=== PATIENT | female | born 1975 | race Caucasian/White ===

== ENCOUNTER → 2016-05-08 | Outpatient (CLI) | payer BC ==
[~2016-05-08] MED LIST: DOCO1CAP10 PO; FOLIC ACID PO; METH0.2T39 PO; MTR600X PO; OXYC-57 PO; PRENTAB26 PO; RANI150T3 PO
[2016-05-08 14:49] LABS: BASO % 0.1 %; BASO ABS # 0.01 K/uL (0-0.2); COMPLETE YES; EOS % 1.7 %; HEMATOCRIT 39.3 % (37-47); IG% 0.1 %; LYMPH % 17.4 %; LYMPH ABS # 1.67 K/uL (1.2-3.4); MEAN CELL VOLUME 89.1 fL (80-100); MEAN CORPUSCULAR HEMOGLOBIN 31.7 pg (25-34); MEAN CORPUSCULAR HGB CONC 35.6 g/dl (32-36); MEAN PLATELET VOLUME 11.4 fL (7.4-10.4); MONO % 7.6 %; NEUT % 73.1 %; PLATELET COUNT 220 K/uL (130-400); RED BLOOD COUNT 4.41 M/uL (4.2-5.4); WHITE BLOOD COUNT 9.58 K/uL (4.8-10.8)
[2016-05-08 15:32] LABS: URINE APPEARANCE CLEAR (CLEAR); URINE BILIRUBIN NEG (NEG); URINE COLOR YELLOW; URINE NITRITE NEG (NEG); URINE PH 5.5 (4.5-7.5); URINE SPECIFIC GRAVITY 1.005 (1.000-1.030); UROBILINOGEN NEG (NEG)
[2016-05-08 15:34] LABS: MANUAL MICROSCOPIC REQUIRED? NO; REVIEW REQ? NO
[2016-05-12 03:07] LABS: CHLAMYDIA TRACH RNA*** NOT DETECTED (NOT DETECTED); GC (NEIS GONORRHOEAE)RNA** NOT DETECTED (NOT DETECTED)
== END | disposition home or self-care (01) ==
LOC: C.LAB1850 12:33
PROVIDERS: ATTEND Obstetrics & Gynecology
DX: O09.811 Supervision of pregnancy resulting from assisted reproductive technology, first trimester (principal)

== ENCOUNTER → 2016-06-06 | Outpatient (CLI) | payer BC ==
[2016-06-06 12:35] LABS: GTGD 50 Grams
[2016-06-07 15:19] LABS: AFP CONCENTRATION 39.7 NG/ML; AFP MULTIPLE OF MEDIAN 1.15; AFPTS INSULIN DEP DIABETIC? NO; AFPTS MATERNAL WT 137 LBS; ALPHA-FETOPROTEIN RACE CAUCASIAN=W; HISTORY OF NTD NO; REPEAT SAMPLE? NO
== END | disposition home or self-care (01) ==
LOC: C.LAB1850 09:23
PROVIDERS: ATTEND Obstetrics & Gynecology
DX: O09.812 Supervision of pregnancy resulting from assisted reproductive technology, second trimester (principal)

== ENCOUNTER → 2016-08-28 | Outpatient (CLI) | payer BC ==
[2016-08-28 16:35] LABS: URINE APPEARANCE CLEAR (CLEAR); URINE BILIRUBIN NEG (NEG); URINE COLOR YELLOW; URINE NITRITE NEG (NEG); URINE PH 6.5 (4.5-7.5); URINE SPECIFIC GRAVITY 1.008 (1.000-1.030); UROBILINOGEN NEG (NEG)
[2016-08-28 16:46] LABS: MANUAL MICROSCOPIC REQUIRED? NO; REVIEW REQ? NO
== END | disposition home or self-care (01) ==
LOC: C.LABSPEC 15:30
PROVIDERS: ATTEND Obstetrics & Gynecology
DX: O09.513 Supervision of elderly primigravida, third trimester (principal)

== ENCOUNTER → 2016-08-29 | Outpatient (CLI) | payer BC ==
[2016-08-29 09:37] LABS: HEMATOCRIT 38.2 % (37-47)
[2016-08-29 10:29] LABS: GTGD 50 Grams
== END | disposition home or self-care (01) ==
LOC: C.LAB1850 07:28
PROVIDERS: ATTEND Obstetrics & Gynecology
DX: O09.513 Supervision of elderly primigravida, third trimester (principal); Z3A.00 Weeks of gestation of pregnancy not specified

== ENCOUNTER → 2016-10-29 | Outpatient (CLI) | payer BC | END | disposition home or self-care (01) | LOC: C.LABSPEC 12:25 | PROVIDERS: ATTEND Obstetrics & Gynecology | DX: O09.513 Supervision of elderly primigravida, third trimester (principal); Z3A.00 Weeks of gestation of pregnancy not specified ==

== ENCOUNTER 2016-11-21 00:11 | Inpatient (IN) | payer BC ==
[~2016-11-21] VITALS: Ht 172.7 cm; Wt 74.1 kg
[~2016-11-21 00:11] MED LIST changes: -OXYC-57 PO; -RANI150T3 PO
[2016-11-28] MEDS ORDERED: LACTATED RINGER'S 1000ML 1,000 ML IV PRN (07:51)
[2016-11-28] MEDS ORDERED: LACTATED RINGER'S 1000ML 500 ML IV PRN (08:17)
[2016-11-28 08:29] VITALS: Ht 172.7 cm; Wt 74.1 kg
[2016-11-28] MEDS ORDERED: OXYTOCIN 30 UNITS/500ML NSS IV PRN (08:30)
[2016-11-28 08:33] LABS: HEMATOCRIT 39.7 % (37-47); MEAN CELL VOLUME 90.2 fL (80-100); MEAN CORPUSCULAR HEMOGLOBIN 31.8 pg (25-34); MEAN CORPUSCULAR HGB CONC 35.3 g/dl (32-36); MEAN PLATELET VOLUME 12.1 fL (7.4-10.4); PLATELET COUNT 183 K/uL (130-400); WHITE BLOOD COUNT 13.65 K/uL (4.8-10.8)
[2016-11-28] MEDS: LACTATED RINGER'S 1000ML 1,000 ML IV SCH ×2 (08:48→16:50)
[2016-11-28] MEDS ORDERED: RANI150T3 PO (09:51)
--- NOTE | 2016-11-28 14:48 | Medical Student: [facility] ---
Med Student History & Physical Date of Service Nov 28, 2016. Chief Complaint Induction History of Present Illness Source: patient Pt is a 41 yo F with LAURA of 11/21/2016 by 1st trimester US at 41 weeks GA who presents for induction of labor. course has been followed by [facility]. Pt reports having regular contractions every 2 minutes and good movement. There was no loss of fluid/SROM when pt arrived at hospital. Pt denies bleeding. Pt plans to receive epidural for pain control. Blood type O positive, rubella immune, GBS negative, HBV negative, VDRL/RPR nonreactive, C/G negative, 1 hr glucose 102 CBC (11/28/2016 0805) Hgb 14.0 Hct 39.7 OB History Spontaneous (08/23/2014 and 02/10/14) Blighted ovum (11/12/2013) Hx of infertility [facility]IST History Menarche at age 12 had colposcopy in 2003 Past Medical History varicella, fractured clavicle Past Surgical History D&E in 2014 for missed Tonsillectomy and adenoidectomy wisdom teeth Family History colon cancer (father) breast cancer (mother) osteoarthritis (mother) osteoporosis (mother) hypertension (mother, father) hypercholesterolemia (mother, father) spina bifida (brother) coronary artery disease (maternal grandmother) stroke (maternal grandmother) diabetes mellitus (paternal grandmother) Social History Smoking Status: Never Smoker Alcohol Use: none Drug Use: none Marital Status: Occupational Status: employed Allergies Coded Allergies: No Known Allergies (Unverified , 09/10/14) Home Medications Docosahexaenoic Acid (Dha), 1 CAP PO DAILY Multivit/Min/Iron/Fol Ac/Pren ( Vitamin), 1 TAB PO DAILY Ranitidine Hcl (Zantac), 1 TAB PO BID [Folic Acid], 1 MG PO QID Review of Systems Constitutional: No fever, No chills Eyes: No worsening of vision Respiratory: No cough, No shortness of breath Cardiovascular: No chest pain, No edema Abdomen: No pain, No nausea, No vomiting Genitourinary - Female: No dysuria Physical Exam Vital Signs: Temp: 36.7 c , BP 130/84 , HR 82 , RR 20 General Appearance: WD/WN, no apparent distress Respiratory/Chest: chest non-tender, lungs clear, normal breath sounds Cardiovascular: regular rate, rhythm, no edema Abdomen / GI: non tender, soft Extremities: normal inspection, no calf tenderness, no pedal edema Skin: normal color, warm/dry Monitoring External Monitor: Baseline HR 130, moderate variability, accels present, no decels, category 1 Tocodynamometer: ctx every 2 minutes Laboratory Results 11/28/16 08:05 Test 11/28/16 08:05 Red Blood Count 4.40 M/uL (4.2-5.4) Mean Corpuscular Volume 90.2 fL (80-100) Mean Corpuscular Hemoglobin 31.8 pg (25-34) Mean Corpuscular Hemoglobin Concent 35.3 g/dl (32-36) RDW Standard Deviation 45.2 fL (36.4-46.3) RDW Coefficient of Variation 13.7 % (11.5-14.5) Mean Platelet Volume 12.1 fL (7.4-10.4) Assessment and Plan pt is a 41 yo F at 41 weeks GA who presents for induction of labor. tracing category 1. - admit to L&D - monitor mother and fetus with toco and EFM - AROM and pitocin for induction of labor - Epidural for pain control - Expect
[2016-11-28] MEDS ORDERED: LACTATED RINGER'S 1000ML 1,000 ML IV SCH (23:26)
[2016-11-28] MEDS ORDERED: CITRIC ACID/SODIUM CITRATE 15 ML UDC PO SCH (23:45)
[2016-11-29] VITALS (22 sets, daily range): BP systolic 95–125; BP diastolic 60–82; PULSE 73–112; TEMP 36.5–37.2; O2SAT 98–100
[2016-11-29] MEDS ORDERED: CEFAZOLIN IV 2,000 MG in DEXTROSE 5% 50ML 50 ML IV SCH ×2
[2016-11-29] MEDS ORDERED: FENTANYL CITRATE INJ 50 MCG/1 ML 2 ML VIAL ONE (01:09)
[2016-11-29] MEDS ORDERED: MoRPHine SULFATE PF 1 MG/ML 10 ML AMP/VIAL ONE (01:10)
[2016-11-29] MEDS ORDERED: OXYTOCIN INJ 10 UNITS/ML VIAL ONE ×2 (01:10→02:12)
[2016-11-29] MEDS ORDERED: PHENYLEPHRINE HCL INJ 10 MG/ML VIAL ONE (01:10)
[2016-11-29] MEDS ORDERED: ONDANSETRON INJ 2 MG/ML 2 ML VIAL ONE (01:53)
[2016-11-29] MEDS ORDERED: SODIUM CHLORIDE 0.9% 1000ML 1,000 ML IV PRN (02:20)
[2016-11-29] MEDS ORDERED: NALOXONE HCL INJ 1 MG in SODIUM CHLORIDE 0.9% 1000ML 1,000 ML IV PRN (02:20)
[2016-11-29] MEDS ORDERED: NALOXONE HCL INJ 0.08 MG in SYRINGE 1.8 ML IV PRN (02:20)
[2016-11-29] MEDS ORDERED: LACTATED RINGER'S 1000ML 500 ML IV PRN (02:20)
[2016-11-29] MEDS ORDERED: NO NARCOTICS OR SEDATIVES SCH (02:30)
[2016-11-29] MEDS ORDERED: LANOLIN OINT EXT PRN ×2 (02:30)
[2016-11-29] MEDS ORDERED: EpHEDrine SULFATE INJ 50 MG/ML AMP IV PRN (02:30)
[2016-11-29] MEDS ORDERED: NALOXONE HCL 0.4 MG/1 ML VIAL/CARP IV PRN (02:30)
[2016-11-29] MEDS ORDERED: HYDROCORTISONE ACETATE 25 MG SUPP PR PRN (02:30)
[2016-11-29] MEDS ORDERED: MEPERIDINE HCL 25 MG/ML CARP IV PRN (02:30)
[2016-11-29] MEDS ORDERED: BENZOCAINE 20% AER SPR 82.5 GM CAN EXT PRN (02:30)
[2016-11-29] MEDS ORDERED: DiphenhydrAMINE HCL 50 MG/ML VIAL IV PRN ×2 (02:30→19:30)
[2016-11-29] MEDS ORDERED: NALBUPHINE HCL INJ 10 MG/ML AMP IV PRN (02:30)
[2016-11-29] MEDS ORDERED: MoRPHine SULFATE PF 1 MG/ML 10 ML AMP/VIAL EPI PRN (02:30)
[2016-11-29] MEDS ORDERED: SUPERCREAM 0.870 % 15GM JAR EXT PRN (02:30)
[2016-11-29] MEDS ORDERED: MoRPHine SULFATE 2 MG/ML CARP IV PRN (02:30)
[2016-11-29] MEDS ORDERED: ONDANSETRON INJ 2 MG/ML 2 ML VIAL IV PRN ×2 (02:30→19:30)
[2016-11-29] MEDS ORDERED: DIPHTHERIA/TETANUS/PERTUSSIS 0.5 ML SYR/VIAL IM. ONE (02:30)
--- NOTE | 2016-11-29 02:31 | [facility] Post Operative Brief Note ---
Immediate Operative Summary Operative Date Nov 29, 2016. Pre-Operative Diagnosis 1. Post term 2. Failed induction Post-Operative Diagnosis Same Procedure(s) Performed Primary lower uterine transverse caesarean section Delivery of live male child at [address] Hardy Baster Hand Surgeon(s) Tanika Cloud, HENRIQUE Estimated Blood Loss 800cc Findings viable male infant, 8/9 weight 8lbs 7 ozs, Art/venous cord gasses pending , cord blood donation kit collected, normal appearing tubes and ovaries bilaterally Fluids (cc crystalloids) 1600 Specimens Placenta-hold Cord blood Cord blood gases Cord blood for public donation Drains Suarez to gravity Anesthesia Spinal Complication(s) None Disposition L&D
--- NOTE | 2016-11-29 02:53 | Anesthesiology Progress Note ---
Anesthesia Post Op Note Date & Time Nov 29, 2016 at 02:53 Notes Mental Status: alert / awake / arousable, participated in evaluation Pt Amnestic to Procedure: Yes Nausea / Vomiting: adequately controlled Pain: adequately controlled Airway Patency, RR, SpO2: stable & adequate BP & HR: stable & adequate Hydration State: stable & adequate Neuraxial Anesthesia: was administered, sensory block is resolving Anesthetic Complications: no major complications apparent
[2016-11-29] MEDS: OXYTOCIN INJ 20 UNITS in LACTATED RINGER'S 1000ML 1,000 ML IV SCH ×3 (03:22→18:46)
--- NOTE | 2016-11-29 05:08 | OPERATIVE REPORT ---
DATE OF OPERATION: 11/29/2016 PREOPERATIVE DIAGNOSES: 1. Postdates . 2. Failed induction. POSTOPERATIVE DIAGNOSES: Same. PROCEDURE PERFORMED: Primary low cervical transverse section. SURGEON: Dr. Hardy. ANESTHESIA: Spinal. FINDINGS: Viable male with Apgars of 8 and 9 and weight of 8 pounds 7 ounces. Arterial and venous cord gases are pending. Cord blood donation kit collected. Normal appearing tubes and ovaries bilaterally. PROCEDURE IN DETAIL: The patient was taken to the operating room, and after spinal anesthesia, was placed in supine position and draped and prepped in the usual fashion. Pfannenstiel type incision was made. Underlying subcutaneous tissue was dissected down to the ventral abdominal fascia which was nicked and opened in a horizontal manner. Preperitoneal fascia was dissected away until the peritoneal cavity was entered and opened in a vertical manner. Bladder blade was placed. Uterus was entered sharply and extended in a semi-lunar fashion manually. Viable male infant with description as above was delivered. Cord was clamped and cut and the baby was passed off to pediatrics who was in attendance for the delivery. Cord gases, cord blood samples obtained. Cord blood donation kit was collected. The placenta was then delivered manually and the uterus was exteriorized. Uterine cavity was wiped clean of any residual blood tissue and/or clot. Uterine atony addressed with myometrial injection of Hemabate 250 mcg directly into the myometrium. The uterine incision was closed with 2 layers of 4-0 Vicryl, the first a running locking stitch, the second an imbricating stitch. Hemostasis achieved and the uterus returned to the pelvic cavity. Pericolic gutters were cleared bilaterally of any blood tissue and/or clot. Sponge and needle count was correct. Inspection of the uterine incision was again showing hemostasis. The rectus muscle was then plicated in the midline with a running 2-0 Vicryl stitch. The fascia was closed laterally with a running 0 Vicryl suture. Subcutaneous tissue was irrigated with saline. Skin incision was closed with a 4-0 Monocryl subcuticular suture. Sterile dressing applied and the patient taken to the recovery room in satisfactory condition. I attest to the content of the Intraoperative Record and any orders documented therein. Any exception s are noted below.
[2016-11-29] MEDS: KETOROLAC TROMETHAMINE 30 MG/ML VIAL IV. PRN ×2 (05:49→18:46)
[2016-11-29] MEDS: FERROUS SULFATE 325 MG TAB PO SCH (08:27)
[2016-11-29] MEDS: PRENATAL VITAMIN TAB PO SCH (08:27)
[2016-11-29] MEDS ORDERED: MISOPROSTOL 200 MCG TAB ONE (08:52)
[2016-11-29] MEDS ORDERED: MISOPROSTOL 200 MCG TAB PO STA (08:57)
[2016-11-29] MEDS ORDERED: CALCIUM CARBONATE 500 MG CHEWABLE ONE (10:15)
[2016-11-29] MEDS ORDERED: CALCIUM CARBONATE 500 MG CHEWABLE PO PRN (10:15)
[2016-11-29] MEDS ORDERED: DC INTRASPINAL MORPHINE SCH (19:30)
[2016-11-29] MEDS ORDERED: OXYCODONE/ACETAMINOPHEN 5-325 TAB PO PRN (19:30)
[2016-11-29] MEDS ORDERED: KETOROLAC TROMETHAMINE 30 MG/ML VIAL IV. PRN (19:30)
[2016-11-30] VITALS (17 sets, daily range): BP systolic 96–145; BP diastolic 58–93; PULSE 76–102; TEMP 36.5–37.3; O2SAT 96–98
[2016-11-30] MEDS: IBUPROFEN 600 MG TAB PO PRN ×4 (03:04→17:39)
[2016-11-30] MEDS: OXYCODONE/ACETAMINOPHEN 5-325 TAB PO PRN ×4 (03:04→17:39)
--- NOTE | 2016-11-30 07:58 | Progress Note ---
Subjective Nov 30, 2016. Subjective conversation w/ patient, physical exam Ambulation: ambulating normally Voiding: no voiding problems Passing Gas: Yes Diet Tolerance: Regular Diet Lochia: Moderate (decreased greatly from yesterday) Feeding Type: Breast Feeding Review of Systems Constitutional: No fever, No chills Cardiac: No chest pain Abdomen: No nausea, No vomiting Objective Vital Signs Date Time Temp Pulse Resp B/P (MAP) Pulse Ox O2 Delivery O2 Flow Rate FiO2 11/30/16 07:30 36.5 96 16 145/93 (110) 98 Room Air 11/30/16 03:35 37.3 96 16 101/66 (78) Room Air 11/29/16 23:40 Room Air 11/29/16 23:40 36.9 84 18 95/60 (72) Room Air 11/29/16 20:00 18 99 11/29/16 19:30 18 100 11/29/16 19:05 36.8 102 18 105/70 (82) 99 Room Air 11/29/16 19:00 18 100 11/29/16 18:00 18 100 11/29/16 17:00 18 99 11/29/16 16:25 37.1 112 18 101/70 (80) 100 Room Air 11/29/16 16:25 100 Room Air 11/29/16 16:00 20 100 11/29/16 15:00 18 99 11/29/16 13:00 18 100 11/29/16 12:05 18 100 11/29/16 11:07 37.2 100 20 120/82 (95) 99 Room Air 11/29/16 11:05 20 99 11/29/16 10:30 18 100 11/29/16 09:30 16 100 11/29/16 08:30 17 100 11/29/16 08:30 Room Air 11/29/16 08:30 17 100 Physical Exam General Appearance: WELL-APPEARING, NO APPARENT DISTRESS Respiratory/Chest: no respiratory distress, no accessory muscle use Cardiovascular: no edema Abdomen: non tender, soft Fundus: Firm Extremities: no pedal edema, no calf tenderness Laboratory Results Last 24 Hours Test 11/29/16 10:36 11/30/16 06:49 Hemoglobin 10.7 g/dL Hematocrit 31.0 % Assessment and Plan Post-Op Day#: 1 Continue Routine Care: POD1 for failed IOL, with PPH treated by cytotec yesterday. Improved greatly in terms of VB today. Labs pending.
[2016-11-30 08:11] LABS: HEMATOCRIT 18.2 % (37-47); MEAN CELL VOLUME 91.9 fL (80-100); MEAN CORPUSCULAR HEMOGLOBIN 31.3 pg (25-34); MEAN CORPUSCULAR HGB CONC 34.1 g/dl (32-36); MEAN PLATELET VOLUME 11.1 fL (7.4-10.4); PLATELET COUNT 141 K/uL (130-400); RED BLOOD COUNT 1.98 M/uL (4.2-5.4); WHITE BLOOD COUNT 14.06 K/uL (4.8-10.8)
[2016-11-30 08:14] LABS: BASO % 0.1 %; BASO ABS # 0.02 K/uL (0-0.2); COMPLETE YES; ECHINOCYTES 1+; EOS % 0.6 %; IG% 0.2 %; LYMPH % 12.8 %; MONO % 8.6 %; NEUT % 77.7 %
[2016-11-30] MEDS: FERROUS SULFATE 325 MG TAB PO SCH (08:20)
[2016-11-30] MEDS: PRENATAL VITAMIN TAB PO SCH (08:20)
--- NOTE | 2016-11-30 08:56 | Progress Note ---
Progress Note Date of Service Nov 30, 2016. Progress Note Patient's hemoglobin is 6.2, down from 10.7 yesterday. She is feeling some ringing in her ears when ambulating. Vaginal bleeding has slowed at this point, a scant amount in the pad at this time, and patient passed a small clot the last time she got up to go to the bathroom. We discussed her symptomatic anemia, patient is agreeable to blood transfusion. Will order 2u PRBC. Discussed risks/benefits/alternatives, patient would like to proceed.
[2016-11-30 18:28] LABS: HEMATOCRIT 25.1 % (37-47)
[2016-11-30] MEDS: SENNA 8.6 MG TAB PO SCH (21:30)
[2016-11-30] MEDS: MAGNESIUM HYDROXIDE SUSP 30 ML UDC PO SCH (21:30)
[2016-12-01] MEDS: IBUPROFEN 600 MG TAB PO PRN ×3 (02:01→15:56)
[2016-12-01] MEDS: OXYCODONE/ACETAMINOPHEN 5-325 TAB PO PRN ×2 (02:01→18:06)
--- NOTE | 2016-12-01 05:49 | OB/GYN Progress Note ---
[employer] Progress Note Date of Service Dec 01, 2016. Subjective conversation w/ patient, physical exam, chart review, lab review Ambulation: ambulating normally Voiding: no voiding problems Passing Gas: Yes Diet Tolerance: Regular Diet Lochia: Small Feeding Type: Breast Feeding Pain: 1/10 at worst 6/10 with movement controlled with pain medications Review of Systems Constitutional: No fever Respiratory: No shortness of breath Cardiac: No chest pain Breast: No problem reported Abdomen: No nausea, No vomiting Female : No dysuria Objective Vital Signs Date Time Temp Pulse Resp B/P (MAP) Pulse Ox O2 Delivery O2 Flow Rate FiO2 11/30/16 23:30 Room Air 11/30/16 23:30 36.8 76 18 110/67 (81) Room Air 11/30/16 19:15 36.9 98 20 111/71 (84) 96 Room Air 11/30/16 18:15 36.6 82 20 110/71 (84) Room Air 11/30/16 17:15 36.8 79 20 122/76 (91) Room Air 11/30/16 16:15 36.6 88 20 104/65 (78) Room Air 11/30/16 15:30 Room Air 11/30/16 15:15 36.6 97 20 118/71 11/30/16 14:45 36.9 94 20 98/61 98 11/30/16 14:15 36.9 98 20 96/58 98 11/30/16 14:00 36.9 92 20 98/65 98 11/30/16 13:48 36.9 92 20 113/71 11/30/16 13:25 37.3 96 18 104/64 11/30/16 12:55 36.8 102 18 118/73 11/30/16 12:25 37.0 102 18 127/79 11/30/16 12:05 37.0 88 20 120/76 98 11/30/16 11:45 36.8 98 16 129/64 11/30/16 08:35 Room Air 11/30/16 07:30 36.5 96 16 145/93 (110) 98 Room Air Physical Exam General Appearance: WELL-APPEARING Respiratory/Chest: lungs clear, normal breath sounds, no respiratory distress Cardiovascular: regular rate, rhythm Abdomen: normal bowel sounds, non tender, soft Fundus: Firm, Relation to Umbilicus (2 finger breaths below) Incision Description: Clean, Dry & Intact Extremities: non-tender, + pedal edema (mild ) Laboratory Results Last 24 Hours Test 11/30/16 06:49 11/30/16 18:02 White Blood Count 14.06 K/uL Red Blood Count 1.98 M/uL Hemoglobin 6.2 g/dL 8.6 g/dL Hematocrit 18.2 % 25.1 % Mean Corpuscular Volume 91.9 fL Mean Corpuscular Hemoglobin 31.3 pg Mean Corpuscular Hemoglobin Concent 34.1 g/dl Platelet Count 141 K/uL Mean Platelet Volume 11.1 fL Neutrophils (%) (Auto) 77.7 % Lymphocytes (%) (Auto) 12.8 % Monocytes (%) (Auto) 8.6 % Eosinophils (%) (Auto) 0.6 % Basophils (%) (Auto) 0.1 % Neutrophils # (Auto) 10.92 K/uL Lymphocytes # (Auto) 1.80 K/uL Monocytes # (Auto) 1.21 K/uL Eosinophils # (Auto) 0.08 K/uL Basophils # (Auto) 0.02 K/uL RDW Standard Deviation 47.4 fL RDW Coefficient of Variation 14.3 % Immature Granulocyte % (Auto) 0.2 % Immature Granulocyte # (Auto) 0.03 K/uL Echinocytes 1+ Medications Current Inpatient Medications Medications (Trade) Dose Ordered Sig/Gabe Route Start Time Stop Time Status Last Admin Dose Admin Lactated Ringer's 1,000 ml @ 1,000 mls/hr Q1H IV 11/28/16 23:26 12/28/16 23:25 Morphine Sulfate (Duramorph Pf Inj) TODAY PRN EPI 11/29/16 02:30 Ketorolac Tromethamine (Toradol Inj) 30 mg Q6H PRN IV. 11/29/16 19:30 12/04/16 19:29 Oxycodone/ Acetaminophen (Percocet 5-325mg Tab) 1 tab Q4H PRN PO 11/29/16 19:30 12/13/16 19:29 12/01/16 02:01 1 TAB Oxycodone/ Acetaminophen (Percocet 5-325mg Tab) 2 tab Q4H PRN PO 11/29/16 19:30 12/13/16 19:29 Ibuprofen (Motrin Tab) 600 mg Q4H PRN PO 11/29/16 02:30 12/29/16 02:29 12/01/16 02:01 600 MG Ondansetron HCl (Zofran Inj) 4 mg Q4H PRN IV 11/29/16 19:30 12/29/16 19:29 Prenat Multivit/ [employer]/Iron/Folic Ac ( Vitamin Tab) 1 tab DAILY PO 11/29/16 08:00 12/29/16 07:59 11/30/16 08:20 1 TAB Magnesium Hydroxide (Milk Of Magnesia Susp) 30 ml HS PO 11/30/16 22:00 12/30/16 21:59 11/30/16 21:30 30 ML Ferrous Sulfate (Feosol Tab) 325 mg DAILY PO 11/29/16 08:00 12/29/16 07:59 11/30/16 08:20 325 MG Cocaine HCl (Supercream 0.870% Cr) BID PRN EXT 11/29/16 02:30 12/13/16 02:29 Lanolin (Lanolin Oint) PRN PRN EXT 11/29/16 02:30 12/29/16 02:29 Hydrocortisone Acetate (Anusol Hc Supp) 25 mg BID PRN MT 11/29/16 02:30 12/29/16 02:29 Benzocaine (Dermoplast Aero Spr) 1 appln PRN PRN EXT 11/29/16 02:30 12/29/16 02:29 Diphenhydramine HCl (Benadryl Cap) 25 mg QID PRN PO 11/29/16 19:30 12/29/16 19:29 Diphenhydramine HCl (Benadryl Inj) 25 mg QID PRN IV 11/29/16 19:30 12/29/16 19:29 Senna (Senokot Tab) 17.2 mg HS PO 11/30/16 22:00 12/30/16 21:59 11/30/16 21:30 17.2 MG Calcium Carbonate (Tums Chew Tab) 1,500 mg ONE PRN PO 11/29/16 10:15 12/29/16 10:14 Assessment and Plan Post-Op Day Number: 2 Continue Routine Care: A/P: This is a 41 y/o female, , POD day 2 s/p for failed IOL with PPH treated with cytotec. She is ambulating and clinically stable. Plan: - Vitals signs are reviewed and WNL (Tmax 36.9 ) - Last Hgb is 8.6 (8/4 post 2 uPRBC transfusion). This AM 8.4 - Blood type O+, GBS neg, Rubella Immune - Routine post operative care - Encourage ambulation, monitor and control pain with medication as needed, continue with regular diet as tolerated and monitor lochia - Stool softeners and sitz bath recommended - Encourage breast feeding and educate about breast feeding Resident Physician Supervision Note: I was present with Dr. Bailey during the history and exam. I discussed the case with the resident and agree with the findings and plan as documented in the note. Any exceptions or clarifications are listed here: POD#2 doing well. Feeling much better after transfusion. Will plan to dc home tomorrow if remains stable. Documented By: Becca Smith Resident Involvement: Resident Care Provided Care Provided: OB Delivery
[2016-12-01 07:45] VITALS: BP 121/74; PULSE 81; TEMP 36.2
--- NOTE | 2016-12-01 07:56 | Discharge Instructions ---
Discharge Instructions Date of Service Dec 01, 2016. Admission Reason for Admission: Induction Discharge Discharge Diagnosis / Problem: after delivery Discharge Goals Goal(s): Routine recovery after delivery Medications Continue Dispensed Medications: supercream, dermaplast, tucks, lansinoh Activity Recommendations Activity Limitations: per Instructions/Follow-up section . Instructions / Follow-Up Instructions / Follow-Up ACTIVITY RECOMMENDATIONS: * Gradual return to full activity over the next 2-3 weeks. * No lifting - nothing heavier than baby over the next 2-3 weeks. * Do not engage in vigorous exercise, sexual activity or sports until cleared by your physician. * Do not drive or operate any motorized equipment until cleared by your physician. * You may shower/bathe daily. MEDICATIONS: For discomfort or pain, you may use Acetaminophen (Tylenol), Ibuprofen (Advil), or Naproxen (Aleve) following the package directions. For constipation you may use Colace following the package directions. BREAST CARE: If you are not breast feeding: * Wear a supportive bra 24 hours a day for one to two weeks. * Avoid stimulating your breasts and nipples as much as possible during the first few weeks after delivery. * When taking a shower, have the warm water hit your back, not breasts. * When your breasts feel full, apply ice packs. Usually three to four times a day helps ease the discomfort. * Take a mild pain medication (Tylenol / Motrin) when you are uncomfortable. If breast feeding: * Use breast milk to lubricate nipples. Lansinoh cream may be used for sore nipples. You do not need to remove cream prior to breast feeding. If using a different brand of cream, check the label for directions regarding removal of cream prior to nursing. * Wear a supportive bra. * If having problems with breasts or breast feeding, call a senior product consultant or your health care provider. SPECIAL CARE INSTRUCTIONS: When you are discharged from the hospital, it is important for you to follow the instructions listed below: * During the first week at home, you should be able to care for yourself and your baby. In addition, the usual light household activities are encouraged. * Limit your activities to the way you feel. Do not try to clean the house or move furniture. Be sensible. * If you actively engage in sports and have done so up until the time of your delivery, you may resume these activities as soon as you feel able. This may take up to one month or even longer. Use good judgment. * Continue to take your vitamins for at least six weeks after the of your baby. * Your diet need not be limited unless you were on a special diet before your delivery. Breast-feeding mothers need around 2500 calories per day and at least 64-80 ounces of fluid per day (8 to 10 glasses). * You should eat foods from the four major food groups. Crash diets or fad diets are to be avoided. Eating lean meats, fresh fruits and vegetables, low-fat dairy products, high fiber foods and a regular exercise program, will help you get back to your pre- weight without putting your health at risk. * Constipation is sometimes a problem after delivery. Take a mild laxative as needed. If breast feeding, Milk of Magnesia is acceptable to use. You may use a suppository or Fleets enema. * A daily shower or tub bath is suggested. Wash incision daily with warm soapy water and pat dry. It doesn't need to be covered unless drainage is present. * A bloody vaginal discharge will usually continue until around four weeks . A small amount of bleeding may continue for as long as six weeks. Vaginal discharge changes from the bright red bleeding after delivery to pink then brownish and finally yellowish-pink before becoming white and disappearing. * Bleeding may increase with activity. Your first period may come in 4-8 weeks. If you are breast feeding, your period may be delayed even longer. * Lake (sex) can begin whenever both you and your partner feel comfortable and do not have any form of genital infection. It is recommended that you wait at least six weeks for internal and external healing to occur. If you have questions, please talk to your health care practitioner. A condom should be used to prevent infection and . * Foreplay, gentle intercourse and lubrication is very important the first several times to prevent pain. A water-based lubricant such as K-Y jelly or Astroglide may be used. * If you have RH negative blood and your baby is RH positive, you will receive RHOGAM by injection prior to discharge. The nurse will give you a card to keep with you that has the date and place that you received RHOGAM after delivery. * During your care, you had a Rubella screen done to check for the presence of rubella antibodies in your blood. If your test was negative, you will receive a Rubella vaccine prior to discharge. This vaccine may cause a fever, soreness at the injection site and flu-like symptoms. If these symptoms persist, notify your health care practitioner. is not advised for one month after a Rubella vaccine. * Verbalizes understanding of car seat law as reviewed with patient nursing. * Car Seat hand-out given and reviewed with patient by nursing. * Shaken baby information reviewed with patient by nursing. Call you doctor if: * Heavy bleeding (saturating several pads an hour) or passing clots the size of your fist. * A fever >101 degrees F (38.3 degrees C) on two occasions four hours apart and /or chills. * Unusual pain in the pelvic or vaginal areas. * Call the doctor for any increased redness, drainage or swelling around the incision and any pain unrelieved by prescribed pain medication. * "Baby Blues" lasting longer than two weeks. If you have any questions or concerns, call your health care practitioner at . FOLLOW UP VISIT: * Please call the office at to schedule a 6 week examination. It is important you keep this appointment. It is important for you to make arrangements for either yearly or twice yearly check-ups thereafter. Current Hospital Diet Patient's current hospital diet: Regular OB Diet Discharge Diet Recommended Diet: Regular Diet Procedures Procedures Performed: Primary lower uterine transverse caesarean section Delivery of live male child at 0200 Pending Studies Studies pending at discharge: no Medical Emergencies . Who to Call and When: Medical Emergencies: If at any time you feel your situation is an emergency, please call [phone] immediately. . Non-Emergent Contact Non-Emergency issues call your: [employer] . . "Provider Documentation" section prepared by Siri Bailey. . VTE Core Measure Inpt VTE Proph given/why not?: SCD's
[2016-12-01] MEDS: PRENATAL VITAMIN TAB PO SCH (09:12)
[2016-12-01] MEDS: FERROUS SULFATE 325 MG TAB PO SCH (09:12)
--- NOTE | 2016-12-01 14:28 | DIAGNOSTIC IMAGING REPORT ---
CHEST 2 VIEWS ROUTINE CLINICAL HISTORY: Rib pain. Trauma. COMPARISON STUDY: None FINDINGS: The heart is normal in size. There is no failure. There is no focal pulmonary consolidation. There are no pleural effusions. There is no pneumothorax. No rib fractures are visualized.[ IMPRESSION: No active disease in the chest. Electronically signed by: Dale Puentes M.D. 12/01/2016 2:27 PM Dictated Date/Time: 12/01/2016 2:25 PM
[2016-12-01 15:45] VITALS: BP 135/85; PULSE 92; TEMP 36.8; O2SAT 100
[2016-12-01] MEDS: MAGNESIUM HYDROXIDE SUSP 30 ML UDC PO SCH (20:37)
[2016-12-01] MEDS: SENNA 8.6 MG TAB PO SCH (21:47)
[2016-12-02 00:05] VITALS: BP 120/75; PULSE 90; TEMP 36.6
[2016-12-02] MEDS: PRENATAL VITAMIN TAB PO SCH (08:02)
[2016-12-02] MEDS: IBUPROFEN 600 MG TAB PO PRN (08:03)
[2016-12-02] MEDS: FERROUS SULFATE 325 MG TAB PO SCH (08:03)
[2016-12-02 08:05] VITALS: BP 118/77; PULSE 98; TEMP 37.4; O2SAT 99
--- NOTE | 2016-12-02 08:23 | Progress Note ---
Subjective Dec 02, 2016. Subjective conversation w/ patient, physical exam, chart review, lab review Ambulation: ambulating normally Voiding: no voiding problems Diet Tolerance: Regular Diet Lochia: Small Feeding Type: Breast Feeding Objective Vital Signs Date Time Temp Pulse Resp B/P (MAP) Pulse Ox O2 Delivery O2 Flow Rate FiO2 12/02/16 00:05 36.6 90 16 120/75 (90) 12/02/16 00:05 Room Air 12/01/16 15:45 36.8 92 18 135/85 (102) 100 Room Air 12/01/16 15:45 100 Room Air Physical Exam General Appearance: WELL-APPEARING Respiratory/Chest: lungs clear Abdomen: non tender Fundus: Firm Incision Description: Clean, Dry & Intact Extremities: no calf tenderness Assessment and Plan Post-Op Day#: 3 Continue Routine Care: Reports pain with deep inspiration. Will get CT scan chest. If negative, home. W[place]ATT
[2016-12-02] MEDS ORDERED: OXYC-57 PO (08:25)
[2016-12-02] MEDS ORDERED: MTR600X PO (08:25)
[2016-12-02] MEDS ORDERED: OPTIRAY 320 IV PRN (08:30)
--- NOTE | 2016-12-02 09:27 | DIAGNOSTIC IMAGING REPORT ---
CHEST CTA for PULMONARY ARTERIES CT DOSE: 213.85 mGy.cm HISTORY: Chest pain with deep breath. TECHNIQUE: Multiaxial CT images of the chest were performed following the intravenous administration of contrast to evaluate the pulmonary arteries. Maximal intensity projection images were also obtained. A dose lowering technique was utilized adhering to the principles of ALARA. COMPARISON STUDY: Chest 12/01/2016. FINDINGS: Normal caliber thoracic aorta with no evidence for dissection. No pleural or pericardial effusions. The heart is normal in size. No evidence for pulmonary embolus. No fractures within the visualized osseous structures. The visualized liver and spleen are unremarkable. No mediastinal or hilar lymphadenopathy. No pneumothorax. Small cluster of tree-in-bud nodular opacities within the lingula. Linear densities within the base of the right middle lobe and lingula favor subsegmental atelectasis. IMPRESSION: 1. No evidence for pulmonary embolus. 2. Small cluster of tree-in-bud nodular opacities within the lingula. This likely represents an infectious bronchiolitis, possibly secondary to aspiration. Electronically signed by: Richard Mayberry M.D. 12/02/2016 9:25 AM Dictated Date/Time: 12/02/2016 9:18 AM
[2016-12-02] MEDS: OXYCODONE/ACETAMINOPHEN 5-325 TAB PO PRN (10:18)
[2016-12-02 13:00] VITALS: BP_DIAS 77; PULSE 98; TEMP 37.4
--- NOTE | 2016-12-17 18:31 | DISCHARGE SUMMARY ---
ADMITTING DIAGNOSES: 1. Supervision of , assisted reproductive technology. 2. 41 weeks' gestational age. DISCHARGE DIAGNOSES: 1. Same. 2. Failed induction. 3. hemorrhage PROCEDURES PERFORMED: 1) Primary low cervical transverse section. 2) Transfusion 2 units PRBC's DISCHARGE MEDICATIONS: 1. Percocet 5/325, 1-2 p.o. q. 4-6 hours p.r.n. pain. 2. Motrin 600 mg p.o. q. 6 hours p.r.n. pain. ADMISSION HISTORY: The patient is a 41-year-old 4, para 0 with an EDC of 21 November, who was admitted at 41 weeks' gestational age for a post-dates induction. The patient's was achieved through IVF technology. She was followed per IVF/advanced maternal age protocol. She had a normal echo at 22 weeks. She had a genetic panoramic screen, which was negative. She had testing, which was all reassuring and she was admitted at 41 weeks for a post-date induction. PAST MEDICAL HISTORY: OBSTETRICAL: As above. GYNECOLOGICAL: As above. MEDICAL: None. SURGICAL: Tonsillectomy and adenoidectomy. ALLERGIES: No known drug allergies. SOCIAL HISTORY: No smoking. FAMILY HISTORY: Noncontributory. REVIEW OF SYSTEMS: As per HPI. ADMISSION PHYSICAL EXAMINATION: GENERAL: Showed a gravid female in no acute distress. VITAL SIGNS: Blood pressure 116/80 and weight of 163 pounds. HEENT: Unremarkable. NECK: Supple. LUNGS: Clear. HEART: With a regular rhythm and rate. ABDOMEN: Gravid, positive heart tones, vertex, estimated weight of 7-1/2 pounds. PELVIC: Showed the cervix to be 3-4 cm dilated, 50% effaced, and -2 station. EXTREMITIES: Showed no deep calf tenderness. NEUROLOGIC: Grossly intact. HOSPITAL COURSE: With the advanced cervical dilatation and positive Dumont score, artificial rupture of membranes for clear fluid was performed. Tracing was category 1. The patient was started on Pitocin per induction protocol. Seven hours after initiation of Pitocin, there had been minimal cervical change. An intrauterine pressure catheter was placed to assess uterine contractions. The patient continued on the Pitocin for a total of 17 hours. The Pitocin was 29 milliunits at that point and contraction pattern had degenerated into an every minute flow amplitude contraction. After 17 hours of Pitocin with no cervical change, the decision was made to proceed with a primary section for failed induction. The patient was taken to the operating room where she delivered a viable male infant with Apgars of 8 and 9 and a weight of 8 pounds 7 ounces. Postoperatively, the patient had heavy vaginal bleeding 6 hours post-op, treated with cytotec. The bleeding was controlled effectively. The patient's H&H dropped on the second postoperative day from 10.7 to 6.2. She did have some orthostatic changes and a decision was made to proceed with transfusion. The patient received 2 units of packed red blood cells. H&Hwas then stable at 8.6 and 8.4 with no symptoms. By the third postoperative day, she was ambulating without difficulty and tolerating a regular diet. She was discharged home on the third postoperative day with the routine discharge instructions and the prescriptions for the medications as listed as above. She will follow up in the office in 2 weeks' time for a postoperative check, but as always she has been instructed to call with any questions, problems or difficulties. SONAL
== END 2016-12-02 13:20 | disposition home or self-care (01) | DRG 766 ==
LOC: C.LD 11-28 07:33 → C.OBG 11-29 06:49
PROVIDERS: ADMIT Obstetrics & Gynecology; ATTEND Obstetrics & Gynecology
PROC: 10D00Z1 Extraction of Products of Conception, Low, Open Approach (ICD-10-PCS; principal; 2016-11-29 00:57)
DX: O61.9 Failed induction of labor, unspecified (principal); O48.0 Post-term pregnancy; Z37.0 Single live birth

== ENCOUNTER 2016-11-27 19:07 | Outpatient (CLI) | payer BC ==
[~2016-11-27] VITALS: Ht 172.7 cm; Wt 74.0 kg
[2016-11-27 20:39] VITALS: Ht 172.7 cm; Wt 74.0 kg
[2016-11-28] MEDS ORDERED: RANI150T3 PO (09:51)
--- NOTE | 2016-12-05 12:24 | EDITING REQUIRED CODING QUERY ---
DIAGNOSIS NEEDED To promote full compliance with coding requirements relating to patient care, physician participation is requested in all cases of manager procurement uncertainty. Please assist us with the question(s) below: Please clarify the insertion of the cervical dilator on 11/27/16: ( x ) Cervical dilator was inserted ( ) Cervical dilator was not inserted ( ) Other, please specified: Thank you for your assistance, Leonora Quiñones - Aerial Tram Operator
== END 2016-11-27 21:00 | disposition home or self-care (01) ==
LOC: C.OPB 19:07 → C.LD 19:07 → C.OPB 21:00
PROVIDERS: ATTEND Obstetrics & Gynecology
DX: O48.0 Post-term pregnancy (principal); O09.523 Supervision of elderly multigravida, third trimester; Z3A.41 41 weeks gestation of pregnancy

== ENCOUNTER → 2017-01-15 | Outpatient (CLI) | payer BC ==
[~2017-01-15] MED LIST changes: -METH0.2T39 PO; +OXYC-57 PO; +RANI150T3 PO
--- NOTE | 2017-01-15 15:56 | DIAGNOSTIC IMAGING REPORT ---
RIGHT ANKLE 3 VIEWS CLINICAL HISTORY: Tarsal tunnel syndrome. FINDINGS: 3 views of the right ankle are obtained. No prior studies are available for comparison at the time of dictation. The skeletal structures are well mineralized. No fracture is seen. The ankle mortise is intact. There is no joint effusion. The overlying soft tissues are within normal limits. IMPRESSION: Unremarkable radiographic assessment of the right ankle. Electronically signed by: Florentino Shaffer M.D. 01/15/2017 3:55 PM Dictated Date/Time: 01/15/2017 3:54 PM
== END | disposition home or self-care (01) ==
LOC: C.RAD1850 15:08
PROVIDERS: ATTEND Internal Medicine
DX: G57.51 Tarsal tunnel syndrome, right lower limb (principal)

== ENCOUNTER → 2017-11-28 | Outpatient (CLI) | payer OTHER | END | disposition home or self-care (01) | LOC: C.PAPS 09:16 | PROVIDERS: ATTEND Obstetrics & Gynecology | DX: Z12.4 Encounter for screening for malignant neoplasm of cervix (principal) ==